=== PATIENT | male | born 1960 | race Asian ===

== ENCOUNTER 2016-10-18 04:33 | Observation (INO) | payer BC ==
[~2016-10-18] VITALS: Ht 188 cm; Wt 111.3 kg
[2016-10-18 04:33] VITALS: BP_SYST 136
[2016-10-18] MEDS ORDERED: NITROGLYCERIN 0.4 MG TAB.SUBL SL ONE (04:45)
[2016-10-18] MEDS ORDERED: ASPIRIN 325 MG TABLET PO ONE (04:45)
[2016-10-18] MEDS ORDERED: MORPHINE 4 MG/ML INJ. SYRINGE IVP ONE (05:15)
[2016-10-18 05:38] LABS: BASOPHILS % (AUTO) 0.4 % (0.0-2.0); EOSINOPHILS # (AUTO) 0.2 K/uL (0.0-0.4); EOSINOPHILS % (AUTO) 2.1 % (0.0-4.0); HEMATOCRIT 46.5 % (36-54); HEMOGLOBIN 15.2 g/dL (14.0-18.0); LYMPHOCYTES # (AUTO) 1.6 K/uL (1.0-5.5); LYMPHOCYTES % (AUTO) 21.7 % (20.5-51.5); MEAN CORPUSCULAR HEMOGLOBIN 31 pg (27-31); MEAN CORPUSCULAR HGB CONC 33 % (32-36); MEAN CORPUSCULAR VOLUME 94 fL (79.0-98.0); MONOCYTES # (AUTO) 0.5 K/uL (0.0-1.0); MONOCYTES % (AUTO) 7.4 % (1.7-9.3); NEUTROPHILS % (AUTO) 68.4 % (40.0-70.0); PLATELET COUNT (AUTO) 229 K/uL (130-430); RED BLOOD CELL COUNT(AUTO) 4.93 MIL/uL (4.2-6.2); RED CELL DISTRIBUTION WIDTH 12.9 % (9.0-15.0); WHITE BLOOD COUNT (AUTO) 7.3 K/uL (4.8-10.8)
[2016-10-18 05:43] LABS: ANION GAP 8 (5-15); CALCIUM 8.9 mg/dL (8.4-11.0); CHLORIDE 107 mmol/L (98-107); CREATININE 0.87 mg/dL (0.55-1.30); GLUCOSE 104 mg/dL (70-99); POTASSIUM 4.1 mmol/L (3.5-5.1); SODIUM SERUM 143 mmol/L (136-145); UREA NITROGEN, BLOOD 16 mg/dL (8-21)
[2016-10-18 05:46] LABS: GFR AFRICAN AMERICAN 118 mL/min (>90)
[2016-10-18 05:52] LABS: ALANINE AMINOTRANSFERASE 32 U/L (12-78); ALBUMIN 3.7 g/dL (3.4-4.8); ASPARTATE AMINOTRANSFERASE 38 U/L (10-37); CREATINE KINASE, TOTAL 158 U/L (39-308); TOTAL BILIRUBIN 0.5 mg/dL (0.0-1.0); TOTAL PROTEIN, SERUM 7.1 g/dL (6.4-8.3)
[2016-10-18] MEDS ORDERED: ASPI325T2 PO (06:20)
[2016-10-18] MEDS ORDERED: CLOP75TA2 PO (06:20)
[2016-10-18] MEDS ORDERED: NIAC500T2 PO (06:20)
[2016-10-18] MEDS ORDERED: LIP10 PO (06:20)
[2016-10-18 06:32] LABS: BILIRUBIN,URINE 1+ (NEGATIVE); BLOOD, URINE NEGATIVE (NEGATIVE); CLARITY/URINE HAZY (CLEAR); COLOR,URINE AMBER (YELLOW); GLUCOSE,URINE NEGATIVE (NEGATIVE); KETONES,URINE TRACE (NEGATIVE); LEUKOCYTE ESTERASE ,URINE NEGATIVE (NEGATIVE); NITRITE, URINE NEGATIVE (NEGATIVE); PH,URINE 5.5 (5.0-8.0); PROTEIN URINE TRACE (NEGATIVE)
[2016-10-18 07:02] LABS: BACTERIA,URINE RARE /HPF (None Seen); MUCUS,URINE 2+ /LPF (None Seen); RBC,URINE 0-3 /HPF (0-3); WBC,URINE 0-3 /HPF (0-3)
[2016-10-18] MEDS ORDERED: NITROGLYCERIN 0.4 MG TAB.SUBL SL PRN (07:15)
[2016-10-18 07:38] VITALS: BP_SYST 102
[2016-10-18] MEDS: METOPROLOL TARTRATE 25 MG TABLET PO SCH (10:27)
[2016-10-18] MEDS: ASPIRIN 325 MG TABLET (ECOTRIN) PO SCH (10:27)
[2016-10-18] MEDS: ENOXAPARIN SODIUM 40 MG/0.4 ML SYRINGE SUBCUT SCH (10:28)
[2016-10-18] MEDS: ACETAMINOPHEN 325 MG TABLET PO PRN (12:10)
[2016-10-18 12:46] VITALS: BP_SYST 106
[2016-10-18 16:11] VITALS: BP_SYST 113
[2016-10-19] VITALS (8 sets, daily range): BP systolic 110–133
[2016-10-19] MEDS: ENOXAPARIN SODIUM 40 MG/0.4 ML SYRINGE SUBCUT SCH (08:43)
[2016-10-19] MEDS: METOPROLOL TARTRATE 25 MG TABLET PO SCH (08:43)
[2016-10-19] MEDS: ASPIRIN 325 MG TABLET (ECOTRIN) PO SCH (08:43)
[2016-10-19] MEDS: ACETAMINOPHEN 325 MG TABLET PO PRN (08:49)
[2016-10-19 08:53] LABS: CALCIUM 9.3 mg/dL (8.4-11.0); CREATININE 0.81 mg/dL (0.55-1.30); POTASSIUM 3.9 mmol/L (3.5-5.1); THYROID STIMULATING HORMONE 1.82 uIu/mL (0.34-4.82)
[2016-10-19] MEDS ORDERED: CLOPIDOGREL BISULFATE 75 MG TABLET PO SCH (09:00)
[2016-10-19] MEDS ORDERED: ATORVASTATIN 20 MG TABLET PO SCH (09:00)
== END 2016-10-19 13:00 | disposition home or self-care (01) ==
LOC: SED 04:33 → STU 07:02
DX: R07.89 Other chest pain (principal); I10 Essential (primary) hypertension; I25.2 Old myocardial infarction; E78.5 Hyperlipidemia, unspecified; I25.10 Atherosclerotic heart disease of native coronary artery without angina pectoris; F17.210 Nicotine dependence, cigarettes, uncomplicated
CPT/HCPCS: 36415 ×2; 71010; 80048; 80053; 80061; 81000; 82550; 84443; 84484 ×2; 85025; 85379; 93005 ×2; 93306; 96372 ×2; 96374; 99285; G0378 ×2; J1650 ×2; J2270